=== PATIENT | female | born 1995 | race Caucasian/White ===

== ENCOUNTER → 2017-05-21 | Outpatient (CLI) | payer BC, MEDICARE, OTHER ==
[~2017-05-21] MED LIST: BLADDER CONTROL MED; Bactrim Ds Tab1 EACH PO; CEPH250A PO; FURO40 PO; HYDR1TAB94 PO; METF500C PO; Macrobid 100 M100 MG PO; Pyridium200 MG PO; TOLT2 PO
[2017-05-21 17:57] LABS: BASOPHILS ABSOLUTE AUTO 0.08 K/mm3 (0.00-0.23); BASOPHILS PERCENT AUTO 1 % (0-2); EOSINOPHILS ABSOLUTE AUTO 0.67 K/mm3 (0.00-0.68); EOSINOPHILS PERCENT AUTO 6 % (0-6); Hematocrit 42.3 % (33.0-51.0); Hemoglobin 13.8 g/dL (11.5-16.0); IMMATURE GRAN ABSOLUTE AUTO 0.05 K/mm3 (0.00-0.10); IMMATURE GRAN PERCENT AUTO 0 % (0-1); LYMPHOCYTES ABSOLUTE AUTO 2.62 K/mm3 (0.84-5.20); LYMPHOCYTES PERCENT AUTO 22 % (21-46); MONOCYTES ABSOLUTE AUTO 0.66 K/mm3 (0.16-1.47); MONOCYTES PERCENT AUTO 6 % (4-13); Mean Corpuscular HGB 30.1 pg (26.0-34.0); Mean Corpuscular HGB Conc 32.6 g/dL (31.5-36.5); Mean Corpuscular Volume 92 fL (80-100); Mean Platelet Volume 10.5 fL (9.1-12.4); NEUTROPHILS PERCENT AUTO 66 % (41-73); Platelet Count 298 K/mm3 (150-400); RDW Coefficient Variation 13.1 % (11.7-14.2); RDW Standard Deviation 43.3 fL (35.1-46.3); Red Blood Cell Count 4.58 M/mm3 (3.80-5.20); White Blood Cell Count 12.08 K/mm3 (4.00-11.30)
[2017-05-21 18:18] LABS: Alanine Aminotransfer (ALT/SGP 30 U/L (12-78); Albumin, Blood 3.7 g/dL (3.4-5.0); Albumin/Globulin Ratio 0.9 (0.8-1.8); Alk Phos 84 U/L (40-126); Anion Gap 8 mmol/L (6-16); Aspartate Aminotrans (AST/SGOT 15 U/L (12-37); Bilirubin, Total 0.2 mg/dL (0.1-1.0); Blood Urea Nitrogen 31 mg/dL (8-24); Bun/Creatinine Ratio 27.7 (12.0-20.0); CO2, Blood 34 mmol/L (21-32); Chloride, Blood 100 mmol/L (98-108); Creatinine, Blood 1.12 mg/dL (0.40-1.00); Globulin, Blood 4.3 g/dL (2.2-4.0); Glomerular Filtration Rate >60 (60-); Glucose, Blood 138 mg/dL (70-99); Potassium, Blood 3.3 mmol/L (3.5-5.5); Sodium, Blood 142 mmol/L (136-145); Thyroid Stimulating Hormone 1.745 uIU/mL (0.360-4.800)
== END ==
LOC: LAB SHORT 17:53
PROVIDERS: Physician Assistant
DX: R53.83 Other fatigue (principal)
CPT/HCPCS: 80053; 84443; 85025

== ENCOUNTER 2017-05-22 18:26 | Emergency (ER) | payer BC, MEDICARE, OTHER ==
[~2017-05-22] VITALS: Ht 154.9 cm; Wt 233.2 kg
[2017-05-22 20:56] LABS: Anion Gap 9 mmol/L (6-16); Blood Urea Nitrogen 35 mg/dL (8-24); CO2, Blood 28 mmol/L (21-32); Calcium, Blood 8.4 mg/dL (8.5-10.1); Chloride, Blood 100 mmol/L (98-108); Glomerular Filtration Rate >60 (60-); Glucose, Blood 133 mg/dL (70-99); Potassium, Blood 3.6 mmol/L (3.5-5.5); Sodium, Blood 137 mmol/L (136-145)
[2017-05-22 21:01] LABS: Magnesium, Blood 1.8 mg/dL (1.6-2.4)
== END 2017-05-22 22:10 | disposition home or self-care (01) ==
LOC: ER 18:26
PROVIDERS: Emergency Medicine
DX: R20.0 Anesthesia of skin (principal); E66.01 Morbid (severe) obesity due to excess calories; E11.9 Type 2 diabetes mellitus without complications; Z79.899 Other long term (current) drug therapy; Z79.84 Long term (current) use of oral hypoglycemic drugs; Z87.891 Personal history of nicotine dependence; Z68.45 Body mass index [BMI] 70 or greater, adult
CPT/HCPCS: 80048; 83735; 99283; J1100

== ENCOUNTER 2018-05-14 14:11 | Emergency (ER) | payer BC, MEDICARE, OTHER ==
[~2018-05-14] VITALS: Ht 154.9 cm; Wt 249.5 kg
[2018-05-14] MEDS ORDERED: Voltaren100 GM TOP (15:33)
== END 2018-05-14 15:48 | disposition home or self-care (01) ==
LOC: ER 14:11
DX: M25.562 Pain in left knee (principal); Z79.899 Other long term (current) drug therapy; Z79.84 Long term (current) use of oral hypoglycemic drugs; E11.9 Type 2 diabetes mellitus without complications; Z87.891 Personal history of nicotine dependence
CPT/HCPCS: 99282

== ENCOUNTER 2019-01-30 11:56 | Emergency (ER) | payer BC, MEDICARE ==
[~2019-01-30] VITALS: Ht 154.9 cm; Wt 235.9 kg
[~2019-01-30 11:56] MED LIST changes: +Voltaren100 GM TOP
[2019-01-30] MEDS ORDERED: FURO40 PO (12:17)
[2019-01-30] MEDS ORDERED: ERGO50000 PO (12:17)
[2019-01-30] MEDS ORDERED: GLIP2.5ER PO (12:17)
[2019-01-30] MEDS ORDERED: GABA300 PO (12:18)
[2019-01-30] MEDS ORDERED: DICL75ER PO (12:18)
[2019-01-30] MEDS ORDERED: TOPI50 PO (12:18)
[2019-01-30] MEDS ORDERED: VENLAFAXINE HC150 MG PO (12:19)
[2019-01-30] MEDS ORDERED: TOLT2 PO (12:20)
[2019-01-30] MEDS ORDERED: BACL10 PO (12:20)
[2019-01-30] MEDS ORDERED: K-Dur10 MEQ PO (12:20)
[2019-01-30] MEDS ORDERED: Phentermine HCl15 MG PO (12:21)
[2019-01-30] MEDS ORDERED: IBUP800 PO (13:22)
== END 2019-01-30 13:30 | disposition home or self-care (01) ==
LOC: ER 11:56
DX: M25.572 Pain in left ankle and joints of left foot (principal); G89.29 Other chronic pain; E11.9 Type 2 diabetes mellitus without complications; E66.01 Morbid (severe) obesity due to excess calories; Z68.45 Body mass index [BMI] 70 or greater, adult; Z87.891 Personal history of nicotine dependence; Z79.899 Other long term (current) drug therapy; Z79.84 Long term (current) use of oral hypoglycemic drugs
CPT/HCPCS: 99282

== ENCOUNTER 2020-11-26 11:24 | Inpatient (IN) | payer MEDICARE ==
[~2020-11-26] VITALS: Ht 154.9 cm; Wt 281.5 kg
[~2020-11-26 11:24] MED LIST changes: +BACL10 PO; +DICL75ER PO; +ERGO50000 PO; +GABA300 PO; +GLIP2.5ER PO; +IBUP800 PO; +K-Dur10 MEQ PO; -METF500C PO; +Phentermine HCl15 MG PO
[2020-11-26 11:43] LABS: Base Excess Venous 2.6 mmol/L; Bicarbonate Venous 24.9 mmol/L (24.0-30.0); PCO2 Venous 61.2 mmHg (38-42); pH Blood Venous 7.29 (7.34-7.37)
[2020-11-26 11:53] LABS: BASOPHILS ABSOLUTE AUTO 0.03 K/mm3 (0.00-0.23); BASOPHILS PERCENT AUTO 0 % (0-2); EOSINOPHILS PERCENT AUTO 0 % (0-6); Hematocrit 47.2 % (33.0-51.0); Hemoglobin 14.3 g/dL (11.5-16.0); IMMATURE GRAN ABSOLUTE AUTO 0.06 K/mm3 (0.00-0.10); IMMATURE GRAN PERCENT AUTO 1 % (0-1); LYMPHOCYTES ABSOLUTE AUTO 0.53 K/mm3 (0.84-5.20); LYMPHOCYTES PERCENT AUTO 5 % (21-46); MONOCYTES ABSOLUTE AUTO 0.34 K/mm3 (0.16-1.47); MONOCYTES PERCENT AUTO 3 % (4-13); Mean Corpuscular HGB 28.4 pg (26.0-34.0); Mean Corpuscular HGB Conc 30.3 g/dL (31.5-36.5); Mean Corpuscular Volume 94 fL (80-100); Mean Platelet Volume 11.1 fL (9.1-12.4); NEUTROPHILS ABSOLUTE AUTO 9.01 K/mm3 (1.96-9.15); NEUTROPHILS PERCENT AUTO 90 % (41-73); NRBC ABSOLUTE 0.02 K/mm3 (0.00-0.02); NRBC Auto 0.2 /100 WBC (0.0-0.2); Platelet Count 188 K/mm3 (150-400); RDW Coefficient Variation 14.6 % (11.7-14.2); RDW Standard Deviation 51.2 fL (35.1-46.3); Red Blood Cell Count 5.04 M/mm3 (3.80-5.20); White Blood Cell Count 9.97 K/mm3 (4.00-11.30)
[2020-11-26 12:15] LABS: Alanine Aminotransfer (ALT/SGP 170 U/L (12-78); Albumin, Blood 2.9 g/dL (3.4-5.0); Albumin/Globulin Ratio 0.6 (0.8-1.8); Alk Phos 60 U/L (50-136); Anion Gap 5 mmol/L (6-16); Aspartate Aminotrans (AST/SGOT 268 U/L (12-37); Bilirubin, Total 0.3 mg/dL (0.1-1.0); Blood Urea Nitrogen 25 mg/dL (8-24); CO2, Blood 31 mmol/L (21-32); Calcium, Blood 7.9 mg/dL (8.5-10.1); Chloride, Blood 101 mmol/L (98-108); Globulin, Blood 4.5 g/dL (2.2-4.0); Glomerular Filtration Rate >60 (60-); Glucose, Blood 161 mg/dL (70-99); Lactate Dehydrogenase (Ld),Bld 739 U/L (100-240); Potassium, Blood 4.9 mmol/L (3.5-5.5); Sodium, Blood 137 mmol/L (136-145); Total Protein, Blood 7.4 g/dL (6.4-8.2)
[2020-11-26 12:25] LABS: C-Reactive Protein, High Sens. >190.000 mg/L (0.000-3.000)
[2020-11-26] MEDS ORDERED: TOPI50 PO (12:31)
[2020-11-26] MEDS ORDERED: TOLT2 PO (12:31)
[2020-11-26] MEDS ORDERED: GLUCOPHAGE1000 M1 PO (12:31)
[2020-11-26] MEDS ORDERED: VENL75ER PO (12:32)
[2020-11-26 13:34] LABS: PCO2 Arterial 70.3 mmHg (35-45); PO2 Arterial 75.3 mmHg (80-100); pH Blood Arterial 7.28 (7.35-7.45)
--- NOTE | 2020-11-26 17:45 | NUR ---
ASSUMED CARE PT ARRIVES FROM ICU WITH BIPAP IN PLACE WITH SETTINGS OF 18/10 75%. PT ALERT AND ABLE TO ANSWER QUESTIONS. DYSPNEA ON EXCERTION BUT ABLE TO ASSIST WITH REPOSITIONING IN BED. PT. HAS RED RASH IN SKIN FOLDS BUT DOES NOT APPEAR TO HAVE ANY ULCERS OR SKIN BREAK DOWN, PT DENIES ANY WOUNDS. PT. HAS NICE IN PLACE FROM ER, URINE SENT. DIFFICULT IV ACCESS, DR. GUZMAN NOTIFIED FOR CENTRAL LINE PLACEMENT. VSS AT THIS TIME. REPORT TO ONCOMING RN.
[2020-11-26 19:26] LABS: Source, Urine Catheter
[2020-11-26 19:28] LABS: Appearance, Urine Hazy (Clear); Bilirubin, Urine Neg (Neg); Blood, Urine 1+ (Neg); Color, Urine Yellow (P-Yellow); Glucose Qualitative, Urine Neg (Neg); Ketones, Urine Neg (Neg); Leukocyte Esterase, Urine Neg (Neg); Nitrite, Urine Neg (Neg); Protein, Urine 2+ (Neg); Specific Gravity, Urine 1.025 (1.003-1.022); Urobilinogen, Urine NORM (Normal)
[2020-11-26 19:36] LABS: Bacteria Many /hpf; Red Blood Cells, Urine 0-2 /hpf (0-2); Squamous Epithelial Cells Few /hpf (Few)
[2020-11-27 00:34] LABS: pH Blood Arterial 7.48 (7.35-7.45)
[2020-11-27 00:35] LABS: PCO2 Arterial 34.2 mmHg (35-45); PO2 Arterial 184 mmHg (80-100)
[2020-11-27 04:21] LABS: BASOPHILS ABSOLUTE AUTO 0.02 K/mm3 (0.00-0.23); BASOPHILS PERCENT AUTO 0 % (0-2); EOSINOPHILS PERCENT AUTO 0 % (0-6); Hematocrit 44.5 % (33.0-51.0); Hemoglobin 13.4 g/dL (11.5-16.0); IMMATURE GRAN ABSOLUTE AUTO 0.05 K/mm3 (0.00-0.10); IMMATURE GRAN PERCENT AUTO 0 % (0-1); LYMPHOCYTES ABSOLUTE AUTO 0.53 K/mm3 (0.84-5.20); LYMPHOCYTES PERCENT AUTO 4 % (21-46); MONOCYTES ABSOLUTE AUTO 0.21 K/mm3 (0.16-1.47); MONOCYTES PERCENT AUTO 2 % (4-13); Mean Corpuscular HGB 28.1 pg (26.0-34.0); Mean Corpuscular HGB Conc 30.1 g/dL (31.5-36.5); Mean Corpuscular Volume 93 fL (80-100); Mean Platelet Volume 11.5 fL (9.1-12.4); NEUTROPHILS PERCENT AUTO 93 % (41-73); NRBC ABSOLUTE 0.04 K/mm3 (0.00-0.02); NRBC Auto 0.3 /100 WBC (0.0-0.2); Platelet Count 162 K/mm3 (150-400); RDW Coefficient Variation 14.6 % (11.7-14.2); RDW Standard Deviation 50.9 fL (35.1-46.3); Red Blood Cell Count 4.77 M/mm3 (3.80-5.20); White Blood Cell Count 12.41 K/mm3 (4.00-11.30)
[2020-11-27 04:52] LABS: Alanine Aminotransfer (ALT/SGP 154 U/L (12-78); Albumin, Blood 2.4 g/dL (3.4-5.0); Albumin/Globulin Ratio 0.6 (0.8-1.8); Alk Phos 50 U/L (50-136); Anion Gap 7 mmol/L (6-16); Aspartate Aminotrans (AST/SGOT 175 U/L (12-37); Bilirubin, Total 0.4 mg/dL (0.1-1.0); Blood Urea Nitrogen 25 mg/dL (8-24); Bun/Creatinine Ratio 32.3 (12.0-20.0); CO2, Blood 29 mmol/L (21-32); Calcium, Blood 7.7 mg/dL (8.5-10.1); Chloride, Blood 104 mmol/L (98-108); Creatinine, Blood 0.77 mg/dL (0.40-1.00); Globulin, Blood 4.1 g/dL (2.2-4.0); Glomerular Filtration Rate >60 (60-); Glucose, Blood 170 mg/dL (70-99); Magnesium, Blood 2.2 mg/dL (1.6-2.4); Potassium, Blood 4.3 mmol/L (3.5-5.5); Sodium, Blood 140 mmol/L (136-145); Total Protein, Blood 6.5 g/dL (6.4-8.2)
--- NOTE | 2020-11-27 06:18 | NUR ---
PROCEDURE FOR INTUBATION 11/26 @ 19:51, 19:53, 20:00 GAVE 5MG I.V.P. VERSED @ 19:52, 19:54 GAVE 100 MG I.V.P. PROPOFOL @ 19:55 INTUBATED WITH 7.5 ETT, 23 @ TEETH (WE WOULD LATER WITHDRAW TO 22 @ TEETH PER DR. GUZMAN) @ 20:26 FINISHED PLACING RIGHT I.J. CENTRAL LINE, CONFIRMED PLACEMENT WITH X-RAY PER DR GUZMAN PT SLEPT WELL THRU NIGHT. NIGHT HAS PROGRESSED HAVE BEEN ABLE TO DECREASE PROPOFOL AND NIMBEX DUE TO DECREASING B.I.S. READINGS AND TRAIN OF 4 = 0-1/4 RESPECTIVELY. CURRENTLY B.I.S. READS 25-35, HOWEVER WILL INCREASE TO 45-55 WITH ANY ACTIVITY. T.O.F. = 2/4. SO FAR HAS TOLERATED TURNING AND REPOSITIONING WITH MINIMAL DROP IN SPO2. DR GUZMAN CALLED AND UPDATED FATHER AFTER INTUBATION, CENTRAL LINE PLACEMENT. ASSESSMENT IS CHARTED. VSS. WILL CONTINUE TO MONITOR.
--- NOTE | 2020-11-27 08:00 | NUR ---
Received report from Bobby COOLEY. Patient is intubated, sdated and paralyzed. She has 7.5 ET and is 22 cm at lips with vent settings of PC 24/24 75%/14 and sats low 90%'s. She has RIJ dressing intact and site WNL's and is infusing Propofol at 20 mcg/kg/min, Nimbex mcg/kg/min, NS at 75ml/hr. She has 16Fr temp barton and temp 99.1. BIS 40's and TO4 1-2/4.
--- NOTE | 2020-11-27 10:00 | NUR ---
Patient's alfredito have been down in the 80 and increased FiO2 to 85% and came up to 89-90 and slowly started to creep down. Talked with Dr Davis and he increased Peep back to 20 and sats currently 94%. Repositioned patient.Increased propofol to 30mcg/kg/min and Nimbex to 1.5 mcg/kg/min.
--- NOTE | 2020-11-27 12:00 | NUR ---
Patient recieved full bed bath and linen change. Repositioned patient. Vent settings of AC/PC 24/24/85/20 and sats >90%. She has has moderate amount of oral secretions and minimal ET secretions. Levophed on standby , Propofol at 30 mcg/kg/min, Nimbex 1 mcg/kg/min, NS at 75 ml/hr
--- NOTE | 2020-11-27 14:00 | NUR ---
No sigmnificant changes with patient, gtt's or vent settings. BIS 40-50 and TO4 remains at 1-2/4
--- NOTE | 2020-11-27 16:15 | NUR ---
New vent setting changes made by RT AC/PC /80/20 and sats 94%. No changes to gtt's. BIS 40-50 and TO4 1-2/4. Repositioned
--- NOTE | 2020-11-27 18:35 | NUR ---
Patient has been doing well at AC/PC /80/20 and sats >90%. VSS, See EMR. Snell patent and had 1400 out and just over 1400 input. BIS 40-60 and TO4 2/4. She continues to be paralyzed and sedated.
--- NOTE | 2020-11-28 04:37 | NUR ---
SHIFT SUMMARY PATIENT HAS DONE WELL THRU NIGHT. AFTER MIDNIGHT PT HAS MAINTAINED SPO2 ~ 95-97, SLOWLY STARTING TO BRING DOWN FIO2. TOLERATING TURN/REPOSITIONING ACTIVITIES BETTER, NO DECLINE IN SPO2 NOTED WITH LAST 2 TURNS. UPDATED FAMILY EARLY IN SHIFT OF OCCURANCES SINCE ADMISSION. ASSESSMENT IS CHARTED. VSS. WILL CONTINUE TO MONITOR.
--- NOTE | 2020-11-28 08:00 | NUR ---
Received report from Bobby COOLEY. Patient intubated and paralyzed. She has 7.5 ET and is 22 cm at gums with vent settings of AC/PC 24/18/20/70% and sats >90%. She has RIJ dressing intact and site WNL's and is infusing Propofol at 30 mcg/kg/min, Nimbex at 1 mcg/kg/min, NS at 75 ml/hr. She has 16 Fr Snell draaining to gravity light sea colored urine.
--- NOTE | 2020-11-28 10:00 | NUR ---
Dr Davis in to see patient and vebnt settings currently are AC/PC 24, 18, 80%, 24 and sats >90%. No gtt chnages. Repositioned.
--- NOTE | 2020-11-28 12:00 | NUR ---
Patient sats have improved since last adjustment and are 94%. Vent setting AC/PC 24/28/80%/24. Repositioned. Bis 40-60 and TO4 2/4. Propofol 30 mcg/kg/min, Nimbex at 1 mcg/kg/min, NS TKO.
--- NOTE | 2020-11-28 14:00 | NUR ---
No significant changes with patient, sats increased to 96%. No changes to vent settings or gtt's.
--- NOTE | 2020-11-28 16:00 | NUR ---
Patient continues to rest and be paralyzed. BIS 50-60, TO4 2/4. Propofol at 30 mcg/kg/min, Nimbex 1 mcg/kg/min, NS TKO. Dark green urine adequate amounts.
--- NOTE | 2020-11-28 18:30 | NUR ---
When positioning patient she was awakening and able to answer questions. Increased paralytic to 2 mcg/kg/min, left Propofol at 30 mcg/kg/min and BIS was low 60's Vent settings AC/PC 24/18/80%/24 and sats 96%. She had 1100 dark green urine, still no stool.
[2020-11-28 20:30] LABS: PCO2 Arterial 54.6 mmHg (35-45)
[2020-11-29 05:27] LABS: BASOPHILS ABSOLUTE AUTO 0.01 K/mm3 (0.00-0.23); BASOPHILS PERCENT AUTO 0 % (0-2); EOSINOPHILS PERCENT AUTO 0 % (0-6); Hematocrit 39.3 % (33.0-51.0); IMMATURE GRAN ABSOLUTE AUTO 0.06 K/mm3 (0.00-0.10); IMMATURE GRAN PERCENT AUTO 1 % (0-1); LYMPHOCYTES PERCENT AUTO 8 % (21-46); MONOCYTES ABSOLUTE AUTO 0.28 K/mm3 (0.16-1.47); MONOCYTES PERCENT AUTO 5 % (4-13); Mean Corpuscular HGB 28.7 pg (26.0-34.0); Mean Corpuscular HGB Conc 30.5 g/dL (31.5-36.5); Mean Corpuscular Volume 94 fL (80-100); Mean Platelet Volume 11.1 fL (9.1-12.4); NEUTROPHILS ABSOLUTE AUTO 5.38 K/mm3 (1.96-9.15); NEUTROPHILS PERCENT AUTO 86 % (41-73); NRBC ABSOLUTE 0.05 K/mm3 (0.00-0.02); NRBC Auto 0.8 /100 WBC (0.0-0.2); Platelet Count 121 K/mm3 (150-400); RDW Coefficient Variation 15.1 % (11.7-14.2); RDW Standard Deviation 52.3 fL (35.1-46.3); Red Blood Cell Count 4.18 M/mm3 (3.80-5.20); White Blood Cell Count 6.23 K/mm3 (4.00-11.30)
--- NOTE | 2020-11-29 05:37 | NUR ---
SHIFT SUMMARY PATIENT HAS DONE WELL TONIGHT. MAINTAINED NIMBEX DRIP @ 2 MCG/KG/HR TO AVOID REPEAT OF DAYSHIFT WHERE PT WOKE UP THRU SEDATION/NIMBEX. T.O.F. = 04/26 CONSISTENTLY. MAINTAINED SPO2 > 92% ENTIRE NIGHT SAVE FOR BOOSTING/REPOSITIONING FOR BED BATH, DESATURATED TO LOW OF 85%, RECOVERED QUICKLY. BROUGHT UP ABG RESULTS WITH DR GUZMAN EARLIER IN SHIFT, NO NEW ORDERS RECEIVED, NO CHANGE IN VENT SETTINGS PER DR GUZMAN. GOOD URINE OUTPUT FOR FLUIDS IN. ASSESSMENT IS CHARTED. VSS. WILL CONTINUE TO MONITOR.
[2020-11-29 05:42] LABS: Albumin, Blood 2.1 g/dL (3.4-5.0); Anion Gap 4 mmol/L (6-16); Blood Urea Nitrogen 13 mg/dL (8-24); Bun/Creatinine Ratio 24.6 (12.0-20.0); CO2, Blood 32 mmol/L (21-32); Calcium, Blood 7.4 mg/dL (8.5-10.1); Chloride, Blood 105 mmol/L (98-108); Creatinine, Blood 0.53 mg/dL (0.40-1.00); Glomerular Filtration Rate >60 (60-); Glucose, Blood 214 mg/dL (70-99); Phosphorus, Blood 1.7 mg/dL (2.5-4.9); Potassium, Blood 4.4 mmol/L (3.5-5.5); Sodium, Blood 141 mmol/L (136-145)
--- NOTE | 2020-11-29 09:17 | NUR ---
CARE OF PT ASSUMED AT 0700. PT SEDATED ON PROPOFOL AT 35MCG FOR MECH VENT. NIMBEX AT 2MCG. PT APPEARS ADEQUATELY SEDATED AND PARALYZED. BIS 28-35. PT W/O COUGH, SWALLOW, GAG, PT DOES NOT BREATH OVER VENT AND IS SYNCHRONIZED W VENT. SATS >90% ON 75% FIO2 W PEEP 24. DR ELLISON IN TO SEE PT THIS AND HAS MADE SOME CHANGES TO VENT. PT CHANGED TO VC W TV 350, PEEP DECREASED TO 18, FIO2 AT 70%. FULL UPDATE GIVEN TO DR ELLISON. NAPHOS 30MMOL INFUSING.
--- NOTE | 2020-11-29 10:30 | NUR ---
PT TURNED TO RIGHT SIDE. SATS INITIALLY DROPPED TO 86%. SATS NOW 88%; DR ELLISON NOTIFIED. IF SATS DROP <88%, PEEP TO BE INCREASED. TOF 0/4, NO CHNAGES HAVE BEEN MADE TO NIMBEX.
--- NOTE | 2020-11-29 15:31 | NUR ---
PT TURNED AT 1400 WITH 3 RN'S AND ONE TRAY LINE WORKER TO ASSESS BACKSIDE/SKIN AND CLEAN BLOOD FROM MENSES. WHILE PT WAS TURNED ON SIDE W LIFT ASSIST TV DECREASED TO 30-50, SATS DECREASED TO 30'S, PT'S FACE TURNED DUSKY BLUE. PT IMMEDIATELY PLACED BACK ON BACK, RT PAGED WHOM WAS AT BEDSIDE WITHIN ONE MIN, PT BAGGED IMMEDIATELY. COLOR RETURNED TO PINK WITH 2MIN, SATS BACK TO 90% WITHIN A COUPLE OF MIN WELL. DR ELLISON AT BEDSIDE WITHIN MINS OF DESATURATION. PT WILL NOT BE PRONED D/T SIZE. WILL MINIMIZE TURNS FOR NOW UNTIL PT MORE STABLE. DR ELLISON IN AGREEMENT. PEEP IS 20, FIO2 HAS BEEN TITRATED DOWN FROM 100% TO 90%. TUBE FEEDS VITAL HIGH PROTEIN STARTED AT 25CC/HR W GOAL RATE OF 40. NIMBEX REMAINS AT 2MCG, PROPOFOL REMAINS AT 35MCG. SKIN TO BACKSIDE INTACT, DISCOLORED BUTTOCKS; LOOKS CHRONIC AND BLANCES. PADS PLACED ON BOTH SIDES OF NICE CATH ON INNER THIGHS TO PREVENT PRESSURE ULCERS; THIGHS TOUCH TOGETHER FIRMLY. PAD PLACED FOR MENSES.
--- NOTE | 2020-11-29 18:38 | NUR ---
TOF HAS REMAINED 0/4. BIS HAS BEEN BETWEEN LOW AND HIGH 30'S T/O SHIFT, RAISES W TURNS. PT ADEQUATELY SEDATED AND PARALYZED THIS SHIFT. PROPOFOL REMAINS AT 35MCG, NIMBEX REMAINS 2MCGS. PT'S FATHER UPDATED TODAY. PT TOLERATED SLIGHT TURN TO LEFT SIDE. PT HYPERTENSIVE AT TIMES. VENT SETTINGS:VC 28/350/90%/20.
--- NOTE | 2020-11-29 23:05 | NUR ---
11/29 @ 23:00 RECEIVED ORDER FOR ATIVAN FOR SEDATION ADJUNCT PER DR ELLISON. INFORMED HIM OF INCREASE HEART RATE, BLOOD PRESSURE DESPITE HAVING JUST GIVEN HYDRALAZINE. PT SEEMS TO BE RESPONSIVE IN VITAL SIGNS TO FENTANYL ADMINISTRATION, EXPEREICNED DECREASE IN HEART RATE, BLOOD PRESSURE, HOWEVER CONTINUES TO HAVE HIGH PEAK PRESSURE ALARMS; READING ~ 50 MMHG, MAINTAINING SPO2 ~ 93% ON UAN0=050%. INFORMED DR ELLISON OF THIS WELL, NOTHING MORE WE CAN DO AT THIS POINT. HAVE INFORMED R.T. WELL. WILL CONTINUE TO MONITOR.
[2020-11-30 03:35] LABS: BASOPHILS ABSOLUTE AUTO 0.01 K/mm3 (0.00-0.23); BASOPHILS PERCENT AUTO 0 % (0-2); EOSINOPHILS PERCENT AUTO 0 % (0-6); Hematocrit 40.6 % (33.0-51.0); Hemoglobin 12.2 g/dL (11.5-16.0); IMMATURE GRAN ABSOLUTE AUTO 0.05 K/mm3 (0.00-0.10); IMMATURE GRAN PERCENT AUTO 1 % (0-1); LYMPHOCYTES ABSOLUTE AUTO 0.52 K/mm3 (0.84-5.20); LYMPHOCYTES PERCENT AUTO 7 % (21-46); MONOCYTES PERCENT AUTO 5 % (4-13); Mean Corpuscular HGB 28.3 pg (26.0-34.0); Mean Corpuscular Volume 94 fL (80-100); NEUTROPHILS PERCENT AUTO 88 % (41-73); NRBC ABSOLUTE 0.03 K/mm3 (0.00-0.02); NRBC Auto 0.4 /100 WBC (0.0-0.2); Platelet Count 113 K/mm3 (150-400); RDW Coefficient Variation 14.8 % (11.7-14.2); RDW Standard Deviation 52.2 fL (35.1-46.3); Red Blood Cell Count 4.31 M/mm3 (3.80-5.20); White Blood Cell Count 7.88 K/mm3 (4.00-11.30)
[2020-11-30 03:52] LABS: Albumin, Blood 2.2 g/dL (3.4-5.0); Anion Gap 6 mmol/L (6-16); Blood Urea Nitrogen 14 mg/dL (8-24); CO2, Blood 30 mmol/L (21-32); Calcium, Blood 7.3 mg/dL (8.5-10.1); Chloride, Blood 104 mmol/L (98-108); Creatinine, Blood 0.56 mg/dL (0.40-1.00); Glomerular Filtration Rate >60 (60-); Glucose, Blood 277 mg/dL (70-99); Magnesium, Blood 2.6 mg/dL (1.6-2.4); Phosphorus, Blood 2.1 mg/dL (2.5-4.9); Potassium, Blood 4.4 mmol/L (3.5-5.5); Sodium, Blood 140 mmol/L (136-145); Triglycerides 783 mg/dL (30-140)
--- NOTE | 2020-11-30 07:04 | NUR ---
SHIFT SUMMARY PT HAS NOT DONE WELL TONIGHT. IS NO LONGER TOLERATING ANY REPOSITIONING. PT DESATURATED 10 POINTS RECENTLY WHILE SIMPLY SUCTIONING ORAL CAVITY. STARTED FENTANYL DRIP, PT WAS INCREASING HEART RATE AND BLOOD PRESSURE. OBTAINED ORDER FROM DR ELLISON FOR ATIVAN, HAD NO EFFECT, GAVE FENTANYL AND HAD NEARLY IMMEDIATE IMPROVEMENT, STARTED FENTANYL DRIP PER DR ELLISON. ASSESSMENT IS CHARTED. VS UNSTABLE. WILL CONTINUE TO MONITOR.
--- NOTE | 2020-11-30 08:00 | NUR ---
Received report from Bobby COOLEY. She is intubated and sedated and paralyzed. She has 7.5 ET and 22 cm at teeth with vent settings of 28/350/100%/20 and sats 97%. She has CL RIJ and is infusing Propofol at 45 mcg/kg/min, Nimbex at 2 mcg/kg/min, NS TKO and Fentynal 50 mcg/hr. She has 16 Fr Snell draining to gravity. OG infusing VHP at 35ml/hr and 30 ml water flushes Q4. BIS 30's and TO4 1/4.
--- NOTE | 2020-11-30 10:00 | NUR ---
no specific changes to gtt's or vent settings, will try to reduce FiO2 after Dr Kinsey see patient and i reposition to see if she drops.
--- NOTE | 2020-11-30 12:00 | NUR ---
Dr Kinsey has seen patient and no new orders. Reduced FiO2 to 90% and sats low 90%'s.Boyfriend at bedside with patient. Family called today to give update on condition.
--- NOTE | 2020-11-30 13:30 | NUR ---
Patient has been diing well with sedation and paralytics. BIS 30-40's and TO4 1/4. No changes to vent settings from last note. Dr Kinsey tried to get approved for ECMO without success. No changes to gtt's and VSS, See EMR.
--- NOTE | 2020-11-30 15:02 | NUR ---
Patient sats up slightly at FiO2 of 90% at 94% sats. No gtt or vent setting changes. Boyfriend remains at bedside. Unable currently to make any other vent changes r/t sats.
--- NOTE | 2020-11-30 15:30 | NUR ---
Reduced FiO2 again to 80% and she continues to sat >90%. She has been well sedated and paralyzed. VSS. No other changes. Boyfriend remains at bedside. Dark green urine output in adequate amounts. Tolerating Tf with residuals <100 ml. BIS 30's and TO4 1/4.
--- NOTE | 2020-11-30 17:30 | NUR ---
Patient has been doing a little better but cannot turn anymore as she desats with any movement. Reduced FioO2 again and vent settings are 28/350/70%/20 and sats 92%. Propofol at 45 mcg/kg/min, nimbex at 2 mcg/kg/min and NS TKO. Tolerating VHP at 35 ml/hr and 30 ml water flushes q4.
[2020-12-01 04:00] LABS: BASOPHILS ABSOLUTE AUTO 0.02 K/mm3 (0.00-0.23); BASOPHILS PERCENT AUTO 0 % (0-2); EOSINOPHILS PERCENT AUTO 0 % (0-6); Hematocrit 39.2 % (33.0-51.0); IMMATURE GRAN PERCENT AUTO 1 % (0-1); LYMPHOCYTES ABSOLUTE AUTO 0.55 K/mm3 (0.84-5.20); LYMPHOCYTES PERCENT AUTO 8 % (21-46); MONOCYTES ABSOLUTE AUTO 0.52 K/mm3 (0.16-1.47); MONOCYTES PERCENT AUTO 7 % (4-13); Mean Corpuscular HGB 28.4 pg (26.0-34.0); Mean Corpuscular HGB Conc 30.6 g/dL (31.5-36.5); Mean Corpuscular Volume 93 fL (80-100); Mean Platelet Volume 11.8 fL (9.1-12.4); NEUTROPHILS ABSOLUTE AUTO 6.08 K/mm3 (1.96-9.15); NEUTROPHILS PERCENT AUTO 84 % (41-73); NRBC ABSOLUTE 0.02 K/mm3 (0.00-0.02); NRBC Auto 0.3 /100 WBC (0.0-0.2); Platelet Count 107 K/mm3 (150-400); RDW Coefficient Variation 14.6 % (11.7-14.2); RDW Standard Deviation 50.4 fL (35.1-46.3); Red Blood Cell Count 4.23 M/mm3 (3.80-5.20); White Blood Cell Count 7.27 K/mm3 (4.00-11.30)
[2020-12-01 04:14] LABS: Albumin, Blood 2.1 g/dL (3.4-5.0); Anion Gap 3 mmol/L (6-16); Blood Urea Nitrogen 19 mg/dL (8-24); Bun/Creatinine Ratio 37.2 (12.0-20.0); CO2, Blood 33 mmol/L (21-32); Calcium, Blood 7.3 mg/dL (8.5-10.1); Chloride, Blood 104 mmol/L (98-108); Creatinine, Blood 0.51 mg/dL (0.40-1.00); Glomerular Filtration Rate >60 (60-); Glucose, Blood 296 mg/dL (70-99); Magnesium, Blood 2.6 mg/dL (1.6-2.4); Phosphorus, Blood 1.8 mg/dL (2.5-4.9); Potassium, Blood 4.3 mmol/L (3.5-5.5); Sodium, Blood 140 mmol/L (136-145)
--- NOTE | 2020-12-01 06:49 | NUR ---
@ 04:30 PT DESATURATED TO LOW OF 80% ALMOST SPONTANEOUSLY AFTER I HAD FINISHED CENTRAL LINE DRESSING CHANGE. LUNG SOUNDS REMAINED DIMINISHED THROUGHOUT, STILL AUDIBLE IN LOWER LOBES. STARTED BAGGING WITH AMBU-BAG, RT ARRIVED AND STARTED LAVAGING, GOT COPIOUS SECRETIONS, JACKMAN, TENACIOUS. CALLED FAMILY TO BEDSIDE, DR ELLISON PERFORMED BEDSIDE BRONCHOSCOPY; SEE HIS NOTE FOR RESULTS. FAMILY DECIDED TO MAKE DNR STATUS, HAS CALLED IN ROOMMATE TO COME VISIT. ASSESSMENT IS CHARTED. VSS, SPO2 IMPROVING SLOWLY. WILL CONTINUE TO MONITOR.
--- NOTE | 2020-12-01 08:00 | NUR ---
Received report from Bobby COOLEY, patient is intubated and sedated and paralized. Vent settings are AC 24, TV 400, FioO2 100%, PEEP 20 and sats low 90's to mid 80's. She has RIJ infusing Propofol at 60 mcg/kg/min, Nimbex at 2 mcg/kg/min, Fentanyl at 50 mcg/min and NS TKO. She has 16 palestinian barton with green/sea urine in adequate amounts. She has sclera edema. OG is currently clamped for med and TF has been stopped.
--- NOTE | 2020-12-01 12:00 | NUR ---
No chnages to vent settings 24/400/100/20 sats low 90's, tried positioning and desats quickly with any side to side movement and has poor recovery time. propofol continues at 60 mcg/kg/min, Nimbex at 2 mcg/kg/min and Fentanyl at 50 mcg/min. No residuals but yellowish liquid expelling from both nostrils, meds tolerated through OG. No BM yet.
--- NOTE | 2020-12-01 15:54 | NUR ---
have been monitoring pt will have supportive conversation with family.
--- NOTE | 2020-12-01 18:00 | NUR ---
Boyfriends and room amtes came after speaking to them on phone as well as Fther whom stated he would be by. Had talk with all of them on phone and gave update of how she has not been improving and slowing getting worse. They all came in but father and he told her roommates he had more important things to do. They stayed until 6 pm and they all left. No changes to vent settings of 24/400/100/20 sats 92%. She continues to not tolerate movement without desats. priopofol at 60 mcg/kg/min. Nimbex at 2 mcg/kg/min, Fentanyl at 50 mcg/hr and NS TKO. Channing had over 100 ml of dark green /sea urine.
[2020-12-02 03:53] LABS: Hematocrit 40.8 % (33.0-51.0); Hemoglobin 12.3 g/dL (11.5-16.0); Mean Corpuscular HGB 28.5 pg (26.0-34.0); Mean Corpuscular HGB Conc 30.1 g/dL (31.5-36.5); Mean Corpuscular Volume 94 fL (80-100); RDW Coefficient Variation 14.6 % (11.7-14.2); RDW Standard Deviation 51.1 fL (35.1-46.3); Red Blood Cell Count 4.32 M/mm3 (3.80-5.20); White Blood Cell Count 11.71 K/mm3 (4.00-11.30)
[2020-12-02 03:55] LABS: BASOPHILS ABSOLUTE AUTO 0.02 K/mm3 (0.00-0.23); BASOPHILS PERCENT AUTO 0 % (0-2); EOSINOPHILS ABSOLUTE AUTO 0.01 K/mm3 (0.00-0.68); EOSINOPHILS PERCENT AUTO 0 % (0-6); IMMATURE GRAN ABSOLUTE AUTO 0.24 K/mm3 (0.00-0.10); IMMATURE GRAN PERCENT AUTO 2 % (0-1); LYMPHOCYTES ABSOLUTE AUTO 0.86 K/mm3 (0.84-5.20); LYMPHOCYTES PERCENT AUTO 7 % (21-46); MONOCYTES ABSOLUTE AUTO 0.56 K/mm3 (0.16-1.47); MONOCYTES PERCENT AUTO 5 % (4-13); NEUTROPHILS ABSOLUTE AUTO 10.12 K/mm3 (1.96-9.15); NEUTROPHILS PERCENT AUTO 86 % (41-73); NRBC ABSOLUTE 0.04 K/mm3 (0.00-0.02); NRBC Auto 0.3 /100 WBC (0.0-0.2)
[2020-12-02 04:08] LABS: Mean Platelet Volume 11.6 fL (9.1-12.4); Platelet Count 134 K/mm3 (150-400)
[2020-12-02 04:17] LABS: Anion Gap 3 mmol/L (6-16); Blood Urea Nitrogen 22 mg/dL (8-24); Bun/Creatinine Ratio 34.1 (12.0-20.0); CO2, Blood 31 mmol/L (21-32); Calcium, Blood 7.3 mg/dL (8.5-10.1); Chloride, Blood 104 mmol/L (98-108); Creatinine, Blood 0.65 mg/dL (0.40-1.00); Glomerular Filtration Rate >60 (60-); Glucose, Blood 264 mg/dL (70-99); Magnesium, Blood 2.5 mg/dL (1.6-2.4); Phosphorus, Blood 2.4 mg/dL (2.5-4.9); Potassium, Blood 4.7 mmol/L (3.5-5.5); Sodium, Blood 138 mmol/L (136-145)
--- NOTE | 2020-12-02 07:29 | NUR ---
SHIFT SUMMARY PATIENT HAS CONTINUED TO NOT DUE WELL TONIGHT. DESPITE INCREASING PROPOFOL, B.I.S. MAINTAINING ~ 30s, HAD TO START PRECEDEX FOR AGITATION. SOME RELIEF WITH ATIVAN ADMINISTRATION EARLIER IN NIGHT. STARTED NIGHT MINIMALLY TOLERATING TURNS, NO DESATURATION. HOWEVER WITH MIDNIGHT TURN, PT DESATURATED TO LOW OF 82%, REPLACED SUPINE ~ 01:00, SPO2 INCREASING, SEE VITAL SIGN DOCUMENTATION FOR EXACT NUMBERS. MIDNIGHT NOTED PT TO HAVE HIGH RESIDUAL, HELD DUE TO RISK FOR ASPIRATION. SWELLING NOTED AND INCREASED STEADILY THRU NIGHT, UNABLE TO INFORM DRPreston DUE TO CONSTANT CHANGING OF MEDICATIONS. ASSESSMENT IS CHARTED.
--- NOTE | 2020-12-02 09:00 | NUR ---
ASSUMED CARE NOTE: ASSUMED CARE OF PT AT 1900, RECEVIED REPORT FROM RAJAN COOLEY. PT IS SEDATED AND PARALYZED. PUPIL RESPONSE IS SLUGGISH, LEFT EYE IS SWOLLEN, YELLOW DISCHARGE NOTED, RED SCLERA NOTED BILAT. WARM COMPRESS APPLIED TO BOTH EYES. PHYSICAN AWARE, WILL PLACE ANTIBIOTIC OINTMENT ORDER PER SCOT. PT IS ON MAX VENT SETTINGS, 24/400/100/20, Sp02 78-80 %, PHYSICAN AWARE, NO FURTHER CHANGES CAN BE MADE. SCANT AMOUNT OF CLEAR SECRETIONS NOTED WITH ETT SUCTION. PT IS DIMINISHED T/O, RT AT BEDSIDE. PT IS IN SR WITH HR IN THE 70'S. TEMP 102.0, ACETAMINOPHEN VIA OGT GIVEN. TUBE FEED RESTARTED PER , ORDER FOR RESIDUAL CHECK PLACED, 0700 RESIDUAL 5ML.
--- NOTE | 2020-12-02 12:03 | NUR ---
Review of pt with staff sats are worsening will discuss with ethesist.
--- NOTE | 2020-12-02 16:26 | NUR ---
Careful conversation with pt boyfriend and roomate. He is holding to hope that she will recover. gently explained that recovery in any form is not possible because she cannot tolerate the procedure. lots of bargaining.focued conversation on holistic care. He states he will come in tomorrow. Discussed with Evangelist Sadler the need forethical plan that protects the patient from extrodinary suffering. Will chaeck back with father again this evening. strategy discussed is if futher decline notifying family of the need to give pt comfort. pt his risk for sudden cardiac event. pt kps score is 20%
[2020-12-02 19:21] LABS: Source, Urine Catheter
[2020-12-02 19:27] LABS: Appearance, Urine Turbid (Clear); Bilirubin, Urine Neg (Neg); Blood, Urine 5+ (Neg); Color, Urine Yellow (P-Yellow); Glucose Qualitative, Urine 3+ (Neg); Ketones, Urine Neg (Neg); Leukocyte Esterase, Urine 3+ (Neg); Nitrite, Urine Neg (Neg); Protein, Urine 2+ (Neg); Specific Gravity, Urine 1.015 (1.003-1.022); Urobilinogen, Urine 1+ (Normal)
--- NOTE | 2020-12-02 19:32 | NUR ---
END OF SHIFT NOTE: PT CONTINUES TO BE ON VENTED, SEDATED AND PARALYZED. TOF 2/4, NO CHANGES TO NIMBEX RATE. BIS MONITOR RUNNING AT 40-45 WITH PROPOFOL AT 35MCG/KG/MIN, FENTANYL AT 100MCG/HR, PRECEDEX AT 0.7MCG/KG/HR. NO CHANGES TO VENT SETTINGS REMAINS AT AC/VC RR24, TV400, PEEP20, FiO2 AT 100% SpO2 BETWEEN 78-85% T/O SHIFT. PT HAS BEEN IN SR WITH HR IN THE 70'S, BP STABLE, AT TIMES HYPERTENSIVE, BP MEDS GIVEN PER EMAR. BT ARE HYPOACTIVE, MOBILTY AGENTS GIVEN. TUBE FEED RUNNING AT GOAL 40ML/HR, RESIDUALS 30ML OR LESS T/O THE SHIFT. BOYFRIEND AND ROOMMATE CAME IN TO SEE PT, DAD WAS CONTACTED, DECLINED VISIT TODAY. REPORT GIVEN TO ONCOMING NURSE RAJAN.
[2020-12-02 19:43] LABS: White Blood Cells, Urine TNTC /hpf (0-5); Yeast/Fungi Urine Many /hpf
[2020-12-02 19:47] LABS: Bacteria Many /hpf; Squamous Epithelial Cells Few /hpf (Few)
[2020-12-03 03:41] LABS: Hemoglobin 12.2 g/dL (11.5-16.0); Mean Corpuscular HGB 28.1 pg (26.0-34.0); Mean Corpuscular HGB Conc 29.8 g/dL (31.5-36.5); Mean Corpuscular Volume 95 fL (80-100); Mean Platelet Volume 11.7 fL (9.1-12.4); NRBC ABSOLUTE 0.04 K/mm3 (0.00-0.02); NRBC Auto 0.3 /100 WBC (0.0-0.2); Platelet Count 184 K/mm3 (150-400); RDW Coefficient Variation 14.5 % (11.7-14.2); RDW Standard Deviation 50.6 fL (35.1-46.3); Red Blood Cell Count 4.34 M/mm3 (3.80-5.20); White Blood Cell Count 14.63 K/mm3 (4.00-11.30)
[2020-12-03 03:55] LABS: Anion Gap 3 mmol/L (6-16); Blood Urea Nitrogen 27 mg/dL (8-24); Bun/Creatinine Ratio 39.4 (12.0-20.0); CO2, Blood 31 mmol/L (21-32); Calcium, Blood 7.5 mg/dL (8.5-10.1); Chloride, Blood 106 mmol/L (98-108); Creatinine, Blood 0.69 mg/dL (0.40-1.00); Glomerular Filtration Rate >60 (60-); Glucose, Blood 300 mg/dL (70-99); Magnesium, Blood 2.7 mg/dL (1.6-2.4); Phosphorus, Blood 2.2 mg/dL (2.5-4.9); Potassium, Blood 4.9 mmol/L (3.5-5.5); Sodium, Blood 140 mmol/L (136-145)
[2020-12-03 04:03] LABS: BAND PERCENT MAN 1 % (0-8); BASOPHILS PERCENT MAN 0 % (0-2); EOSINOPHILS PERCENT MAN 0 % (0-6); LYMPHOCYTES % ATYPICAL MANUAL 1 % (0-0); LYMPHOCYTES ABSOLUTE MAN 1.17 K/mm3 (0.84-5.20); LYMPHOCYTES PERCENT MAN 7 % (21-46); METAMYELOCYTE ABSOLUTE MAN 0.14 K/mm3 (0.00-0.00); METAMYELOCYTE PERCENT MAN 1 % (0-0); MONOCYTES ABSOLUTE MAN 0.29 K/mm3 (0.16-1.47); MONOCYTES PERCENT MAN 2 % (4-13); MYELOCYTE ABSOLUTE MAN 0.29 K/mm3 (0.00-0.00); MYELOCYTE PERCENT MAN 2 % (0-0); NEUTROPHILS ABSOLUTE MAN 12.72 K/mm3 (1.96-9.15); SEG NEUTROPHILS PERCENT MAN 86 % (41-73); TOTAL CELLS COUNTED 100
--- NOTE | 2020-12-03 06:47 | NUR ---
SHIFT SUMMARY PATIENT HAS HAD NO ACUTE CHANGES OVERNIGHT. CONTINUES TO HAVE COPIOUS SECRETIONS FROM NOSE AND MOUTH. STILL UNABLE TO TOLERATE TURNING/REPOSITIONING, DESATURATES WITH EVEN THE MOST MILD OF STIMULATION. ASSESSMENT IS CHARTED. VSS. WILL CONTINUE TO MONITOR.
--- NOTE | 2020-12-03 08:00 | NUR ---
ASSUMED CARE REPORT RECIEVED. PT IS LAYING IN BED INTUBATED, SEDATED, AND PARALYZED. VENT SETTINGS AC/VC 24, TV 400, PEEP 20, FIO2 100%. PT SPO2 CONSISTENTLY 80%. PT SEDATED WITH PROPOFOL, PRECEDEX, AND FENTANYL CENTRIFUGAL DRIER OPERATOR. PT PARALYZED WITH NIMBEX. SEE FLOWSHEET FOR TITRATIONS. TOF IS 1/4. BIS MONITOR LOW 40'S. OGT IN PLACE WITH TF INFUSING AT GOAL RATE. CENTRAL LINE C/D/I. NICE TEMP PROBE IN PLACE WITH YELLOW OUTPUT NOTED. VITAL SIGNS STABLE AT THIS TIME WITH SPO2 80%. PT WITH SEVERE SWELLING TO LEFT EYELID S/P EYE OINTMENT APPLICATION. DR PAN NOTIFIED. WILL CONTINUE TO MONITOR.
--- NOTE | 2020-12-03 10:30 | NUR ---
TUBE FEEDS STOPPED TF DISCONTINUED PER DIETARY JAMES.
--- NOTE | 2020-12-03 13:13 | NUR ---
FAMILY UPDATED PT ROOMMATE AND FATHER UPDATED VIA PHONE. DR PAN SPOKE WITH PT FATHER, LUIS. PT FATHER PLANS TO COME SEE PT THIS AFTERNOON AND FURTHER DISCUSS PLAN OF CARE FROM THIS POINT. PT CONDITION REMAINS UNCHANGED. WILL CONTINUE TO MONITOR.
--- NOTE | 2020-12-03 17:22 | NUR ---
SHIFT SUMMARY NO ACUTE CHANGES THIS SHIFT. PT REMAINS INTUBATED, SEDATED, AND PARALYZED. VENT SETTINGS UNCHANGED. PT WITH MINIMAL ETT SECRETIONS THIS SHIFT. PT SPO2 HAS REMAINED LOW 80'S THIS SHIFT, OTHERWISE VITAL SIGNS STABLE. CENTRAL LINE TO RIJ REMAINS C/D/I. PROPOFOL, PRECEDEX, FENTANYL SED HIGH SCHOOL TEACHER, AND NIMBEX INFUSING. SEE FLOWSHEET FOR TITRATIONS. OGT REMAINS IN PLACE, CLAMPED, TF DC'D PER DIETARY THIS SHIFT. NICE TEMP PROBE REMAINS IN PLACE WITH DARK YELLOW URINE OUTPUT NOTED. PT REPOSITIONED WITH BED THIS SHIFT DUE TO CRITICAL CONDITION. MULTIPLE PT FAMILY MEMBERS UPDATED VIA PHONE. AWAITING VISIT FROM PT FATHER TO DISCUSS PLAN OF CARE WITH DR PAN THIS EVENING. TOF IS 4/4. BIS MONITOR READING LOW 40'S THIS SHIFT. SWELLING TO LEFT EYELID HAS SUBSIDED. WILL CONTINUE TO MONITOR AND REPORT OFF TO ONCOMING RN.
--- NOTE | 2020-12-03 18:19 | NUR ---
CODE BLUE/TRANSFER TO ICU CODE BLUE CALLED TO PCU, CPR DONE IN PCU, PT INTUBATED IN PCU. PT TRANSFERED BACK TO ICU 10 AT 1755. PT PLACED ON VENT SETTINGS AC 16, TV 450, PEEP 10, FIO2 100%. 8.0 ETT, 23 AT TEETH. OGT PLACED, BILE OUTPUT NOTED. PT STARTED TO OPEN EYES AND SHAKE HEAD. DR PAN AT BEDSIDE. PROPOFOL STARTED AT 30 MCG/KG/MIN. LEVOPHED STARTED, TITRATED UP TO 8 MCG/MIN. PT REMAINS HYPOTENSIVE. PLANS TO PLACE CENTRAL LINE AT THIS TIME. WILL CONTINUE TO MONITOR.
--- NOTE | 2020-12-03 18:28 | NUR ---
father and boyfriend on to see pt review of prognosis with intesivist. theraputic time with family to express grief.
--- NOTE | 2020-12-03 20:00 | NUR ---
INITAL ASSESSMENT PT IS INTUBATED AND SEDATED AT THIS TIME. AC 24 VT 400 PEEP 20 FI02 100%. PT IS ON A NIMBEX GTT AT 1.5 WITH A BIZ MONITOR AROUND 36 TO 45. BIZ MONITOR ON PT'S FOREHEAD. PT HAS A TRAIN OF 2/4 AT THIS TIME TO BILATERAL WRIST AND RIGHT FACIAL NERVE. EYES ARE SWOLLEN SHUT MORE SO THE LEFT EYE. WET WASH CLOTH OVER EYES. PT'S OXYGEN SATS ARE LOW 80'S. DR PAN AWARE. HE SPOKE WITH FAMILY AT SHIFT CHANGE AND THEY ARE THINKING OF CHANGE PT OVER TO COMFORT CARE IN THE MORNING. PT HAS AN INCREASED TEMP OF 103.3. WILL CON'T TO PERFORM MEASURES TO DECREASE TEMP. PT HAS A NICE TEMP PROBE IN PLACE. MICHAELAELY CATH IS DRAINING GLODEN YELLOW URINE. SKIN OVERALL IS WARM AND CLAMMY FEELING. SHE IS OBESE AND THUS HAS POWDER ORDERED FOR HER SKIN FOLDS. CENTRAL LINE TO RIGHT IJ CDI DRESSING AND PATENT. SEE EMAR FOR ALL ORDERED AND ADMINISTERED MEDICATIONS. NIMBEX GTT RUNNING AT 1.5, PRECEDEX GTT RUNNING AT 0.7MCG, PROPOFOL GTT RUNNING AT 35 MCG. WILL CON'T TO TITRATE GTTS NEEDED T/O SHIFT TO KEEP VITAL STABLE AND PT COMFORTABLE.
--- NOTE | 2020-12-03 21:21 | NUR ---
CRITICAL VALUE CRITICAL CULTURE RESULTS WERE GIVEN TO DR PAN AT 2120. GRAM POSITIVE COCCI CLUSTERS. LAB WAS FROM CENTRAL LINE. NO NEW ORDERS AT THIS TIME.
--- NOTE | 2020-12-04 02:08 | NUR ---
SHIFT UP DATE PT CON'T TO HAVE NO ACUTE CHANGES THIS SHIFT. PRECEDEX GTT DOWN TO 0.6MCG AND PT IS TOLERATING THIS WELL. NIMBEX GTT CON'T AT 1.5 WITH NO CHANGES TO PT'S BIZ MONITOR AND MONTANEZ OF 4. NO CHANGES TO VENT SETTINGS. WILL CON'T TO MONITOR AND KEEP PT SAFE T/O REMAINDER OF SHIFT.
--- NOTE | 2020-12-04 03:38 | NUR ---
SHIFT UPDATE PT CON'T TO HAVE NO CHANGES FROM BASELINE. NIMBEX GTT CON'T 1.5, PROPOFOL GTT AT 30MCG, PRECEDEX GTT AT 0.6MCG. BIZ MONITOR CON'T TO READ IN THE HIGH 30'S TO LOW 40'S. PT CON'T TO HAVE A TEMP. WILL ICE PACK PT AGAIN AND POTENTIALLY GIVE TYLENOL PT. NICE CATH CON'T TO BE IN PLACE DRAINING CLEAR YELLOW URINE. NO STOOL OUTPUT AT THIS TIME. CENTRAL LINE TO RIGHT IJ CON'T TO BE PATENT WITH NO S/S OF INFECTION. NO CHANGES TO VENT SETTINGS. VERY MINIMAL SPUTUM RETURN IN THE INLINE SUCTION. PT DOES STILL HAVE SATS IN THE HIGH 80'S. PT CON'T TO HAVE NO WRIST RESTRAINTS IN PLACE. WILL CON'T TO MONITOR AND KEEP PT SAFE T/O REMAINDER OF SHIFT.
--- NOTE | 2020-12-04 04:17 | NUR ---
INCREASED TEMP PT WAS GIVEN TYLENOL PER OG TUBE. NO RESIDUAL NOTED AT BEGINNING OF SHIFT. TUBE FEEDING WAS STOPPED ON DAY SHIFT. NO RESIDUAL AT THIS TIME, THUS TYLENOL WAS GIVEN PER TUBE, FLUSHED WITH 50CC OF NS AND THEN CLAMMPED. ICE PACKS ALSO MADE AND POSISTIONED BY PT. ALSO EYES WERE COVERED WITH NEW WET CLOTH. PT WAS TURNED ONTO HER LEFT SIDE WITH PILLOWS AND LIFT. SHE SEEMS TO BE TOLERATING THIS FAIRLY WELL. BP DID DROP A LITTLE, BUT BP CUFF IS ON RIGHT FA AND THIS IS THE SIDE UP. WILL CON'T TO MONITOR AND KEEP PT SAFE.
--- NOTE | 2020-12-04 06:34 | NUR ---
SHIFT SUMMARY PT CON'T TO HAVE NO ACUTE CHANGES T/O THIS SHIFT. TEMP DID DECREASE AFTER ICE AND TYLENOL WERE GIVEN. CHECKED RESIDUALS AGAIN AND THEY WERE MINIMAL. PT HOWEVER DID HAVE SOME JACKMAN LIQUID COMING OUT HER RIGHT NOSTRILE THIS AM. WILL CON'T TO MONITOR AND KEEP PT SAFE TILL REPORT TO ONCOMING RN.
--- NOTE | 2020-12-04 07:20 | NUR ---
ASSUMED CARE REPORT RECIEVED. PT IS INTUBATED, SEDATED, AND PARALYZED. VENT SETTINGS AC 24, TV 400, PEEP 20, FIO2 100%. CENTRAL LINE TO RIJ C/D/I. PROPOFOL, PRECEDEX, FENTANYL PROBATION MANAGER, AND NIMBEX INFUSING. SEE FLOWSHEET FOR TITRATIONS. BIS MONITOR READING LOW 40'S. TOF IS 4/4. OGT CLAMPED. NICE TEMP PROBE IN PLACE WITH DARK URINE OUTPUT NOTED. PT WITH SWELLING TO LEFT EYELID NOTED. VITAL SIGNS STABLE. SPO2 80'S. WILL CONTINUE TO MONITOR.
--- NOTE | 2020-12-04 13:25 | NUR ---
COMFORT CARE/TIME OF FAMILY AND FATHER AT BEDSIDE. PT FAMILY READY TO WITHDRAW CARE. RT VEGA CALLED TO BEDSIDE. ALL GTT'S STOPPED AT 1250, PT EXTUBATED AT 1255 TO ROOM AIR. PT ASYSTOLE AND NO HEART TONES AUSCULTATED. TIME OF 1304. PT FAMILY MEMBERS TOOK ALL PT BELONGINGS. DR PAN NOTIFED.
== END 2020-12-04 13:30 | DRG 207 ==
LOC: ER 11:24 → ERHOLD 13:02 → ICUW 13:02
PROVIDERS: Emergency Medicine; Internal Medicine Critical Care Medicine; Nurse Practitioner Acute Care; ADMIT Internal Medicine
PROC: 5A1955Z Respiratory Ventilation, Greater than 96 Consecutive Hours (ICD-10-PCS; principal; 2020-11-26)
PROC: 0BH18EZ Insertion of Endotracheal Airway into Trachea, Via Natural or Artificial Opening Endoscopic (ICD-10-PCS; 2020-11-26)
PROC: 5A09357 Assistance with Respiratory Ventilation, Less than 24 Consecutive Hours, Continuous Positive Airway Pressure (ICD-10-PCS; 2020-11-26)
PROC: 05HM33Z Insertion of Infusion Device into Right Internal Jugular Vein, Percutaneous Approach (ICD-10-PCS; 2020-11-26)
PROC: B543ZZA Ultrasonography of Right Jugular Veins, Guidance (ICD-10-PCS; 2020-11-26)
PROC: 3E0333Z Introduction of Anti-inflammatory into Peripheral Vein, Percutaneous Approach (ICD-10-PCS; 2020-11-26)
PROC: XW033E5 Introduction of Remdesivir Anti-infective into Peripheral Vein, Percutaneous Approach, New Technology Group 5 (ICD-10-PCS; 2020-11-26)
PROC: 0BC78ZZ Extirpation of Matter from Left Main Bronchus, Via Natural or Artificial Opening Endoscopic (ICD-10-PCS; 2020-12-01)
DX: U07.1 COVID-19 (principal); J12.82 Pneumonia due to coronavirus disease 2019; J96.01 Acute respiratory failure with hypoxia; Z68.45 Body mass index [BMI] 70 or greater, adult; G93.40 Encephalopathy, unspecified; Z66 Do not resuscitate; Z51.5 Encounter for palliative care; E11.9 Type 2 diabetes mellitus without complications; Z79.899 Other long term (current) drug therapy; E66.01 Morbid (severe) obesity due to excess calories; I89.0 Lymphedema, not elsewhere classified; Z79.84 Long term (current) use of oral hypoglycemic drugs; E78.5 Hyperlipidemia, unspecified; J98.2 Interstitial emphysema; R74.01 Elevation of levels of liver transaminase levels
CPT/HCPCS: 31500; 36415; 36556; 36600; 71045; 80048; 80053; 80069; 81001; 82330; 82803; 82947; 83615; 83735; 84100; 84478; 84703; 85025; 86141; 87040; 87077; 87086; 87186; 93005; 93010; 94002; 94003; 94640; 94660; 96374; 99285-25; A9270; C1751; C9113; J0360; J0610; J1100; J1200; J1650; J2060; J2250; J2704; J3010; J7030; J7040; J7050; J7060